=== PATIENT | male | born 1950 | race Caucasian/White ===

== ENCOUNTER 2018-07-18 08:36 | Observation (INO) | payer OTHER ==
[2018-07-18] MEDS ORDERED: PROPOFOL 20 ML (09:41)
[2018-07-18] MEDS ORDERED: LIDOCAINE 2% (SDV) 5 ML INJ (09:41)
[2018-07-18] MEDS ORDERED: SUCCINYLCHOLINE CHLORIDE 100 MG/5 ML SYG IV (09:41)
[2018-07-18] MEDS ORDERED: ROPIVACAINE 0.5 % 30 ML VIAL (09:41)
[2018-07-18] MEDS ORDERED: GLYCOPYRROLATE 0.4 MG INJ ×3 (09:41→12:26)
[2018-07-18] MEDS ORDERED: NEOSTIGMINE 3 MG/3 ML SYRINGE ×2 (09:41→12:26)
[2018-07-18] MEDS ORDERED: ROCURONIUM 50 MG INJ ×4 (09:41→13:24)
[2018-07-18 09:52] LABS: ADD MAN DIFF? NO
[2018-07-18 09:58] LABS: WHITE BLOOD COUNT 9.6 10^3/ul (4.8-10.8)
[2018-07-18 09:58] LABS: BASOPHIL # 0.1 10^3/ul (0.0-0.1); BASOPHILS % 0.5 % (0.0-2.0); EOSINOPHILS # 0.3 10^3/ul (0.0-0.5); EOSINOPHILS % 2.8 % (0.0-7.0); HEMATOCRIT 40.7 % (42.0-52.0); HEMOGLOBIN 12.9 g/dl (14.0-18.0); LYMPHOCYTES # 2.2 10^3/ul (0.8-2.9); LYMPHOCYTES % 23.2 % (15.0-51.0); MEAN CORPUSCULAR HEMOGLOBIN 27.1 pg (29.0-33.0); MEAN CORPUSCULAR HGB CONC 31.7 g/dl (32.0-37.0); MEAN CORPUSCULAR VOLUME 85.5 fl (82.0-101.0); MEAN PLATELET VOLUME 10.4 fl (7.4-10.4); MONOCYTE # 0.9 10^3/ul (0.3-0.9); MONOCYTES % 9.6 % (0.0-11.0); NEUTROPHIL # 6.1 10^3/ul (1.6-7.5); NEUTROPHILS % 63.6 % (39.0-77.0); PLATELET COUNT 246 10^3/UL (140-415); RED BLOOD COUNT 4.76 10^6/ul (4.70-6.10); RED CELL DISTRIBUTION WIDTH 12.7 % (11.5-14.5)
[2018-07-18] MEDS: LACTATED RINGER'S 1,000 ML IV (10:00)
[2018-07-18] MEDS ORDERED: POLYMYXIN/BACITRACIN 1L IRRIG (10:00)
[2018-07-18] MEDS ORDERED: POVIDONE IODINE 10% 28.4 GM OINT (10:00)
[2018-07-18 10:26] LABS: ALANINE AMINOTRANSFERASE 21 IU/L (13-69); ALBUMIN 3.8 g/dl (3.3-4.9); ALBUMIN/GLOBULIN RATIO 0.92; ALKALINE PHOSPHATASE 127 IU/L (42-121); ANION GAP 16 (8-16); ASPARTATE AMINO TRANSFERASE 18 IU/L (15-46); BILIRUBIN,INDIRECT 0.2 mg/dl (0-1.1); BILIRUBIN,TOTAL 0.2 mg/dl (0.2-1.3); BLOOD UREA NITROGEN 33 mg/dl (7-20); CALCIUM 9.2 mg/dl (8.4-10.2); CARBON DIOXIDE 20 mmol/L (21-31); CHLORIDE 113 mmol/L (97-110); CREATININE 1.87 mg/dl (0.61-1.24); GLUCOSE 123 mg/dl (70-220); SODIUM 144 mmol/L (135-144); TOTAL PROTEIN 7.9 g/dl (6.1-8.1)
[2018-07-18] MEDS: POLYMYXIN/BACITRACIN 1L IRRIG IRR (11:18)
[2018-07-18] MEDS ORDERED: PHENYLephrine (100 MCG/ML) 5ML SYG (13:16)
[2018-07-18] MEDS ORDERED: LABETALOL HCL 20MG INJ (15:07)
[2018-07-18] MEDS ORDERED: CEFAZOLIN 1 GM INJ (15:33)
[2018-07-18] MEDS ORDERED: ONDANSETRON 4 MG INJ (16:12)
[2018-07-18] MEDS: ROPIVACAINE 0.5 % 30 ML VIAL (16:17)
[2018-07-18] MEDS: CA CHLORIDE 10% 10 ML SYRINGE (16:17)
[2018-07-18] MEDS: THROMBIN 5000 UNIT VIAL (16:18)
[2018-07-18] MEDS ORDERED: ONDANSETRON 4 MG INJ IV ×2 (17:00)
[2018-07-18] MEDS ORDERED: DIPHENHYDRAMINE 25 MG CAP PO (17:00)
[2018-07-18] MEDS ORDERED: OXYCODONE/ACETAMINOPHEN (5/325) TAB PO ×2 (17:00)
[2018-07-18] MEDS ORDERED: BISACODYL 10 MG SUPP PR (17:00)
[2018-07-18] MEDS ORDERED: METOCLOPRAMIDE 10 MG INJ IV (17:00)
[2018-07-18] MEDS ORDERED: EPHEDrine SULFATE 50 MG/5 ML SYG IV (17:00)
[2018-07-18] MEDS ORDERED: CEFAZOLIN 1 GM INJ IV (17:00)
[2018-07-18] MEDS ORDERED: FENTAnyl 50 MCG/ML VIAL IV ×2 (17:00)
[2018-07-18] MEDS ORDERED: DIPHENHYDRAMINE 50 MG INJ IV (17:00)
[2018-07-18] MEDS ORDERED: hydrALAzine 20 MG INJ IV (17:00)
[2018-07-18] MEDS ORDERED: MIDAZOLAM 1 MG/ML 2 ML INJ IV (17:00)
[2018-07-18] MEDS ORDERED: HYDROmorphONE 1 MG/5 ML IV SYRINGE IV ×3 (17:00)
[2018-07-18] MEDS: LABETALOL HCL 20MG INJ IV (17:17)
[2018-07-18] MEDS: FENTAnyl 50 MCG/ML VIAL IV (17:18)
[2018-07-18] MEDS: HYDROmorphONE 0.2 MG/ML PCA IV (18:07)
[2018-07-18] MEDS: SOD CHLORIDE 0.9% 1,000 ML IV (18:08)
[2018-07-18] MEDS: CEFAZOLIN 1 GM/50 ML (PMX) 50 ML IVPB (18:16)
[2018-07-18] MEDS: MEPERIDINE 25 MG INJ IV (18:25)
[2018-07-18] MEDS: morphine 10 MG INJ IV (18:26)
[2018-07-18] MEDS: SENNA/DOCUSATE NA (8.6MG/50MG) TAB PO (21:00)
[2018-07-19] MEDS: SOD CHLORIDE 0.9% 1,000 ML IV ×4 (02:39→20:47)
[2018-07-19] MEDS: CEFAZOLIN 1 GM/50 ML (PMX) 50 ML IVPB ×3 (02:58→17:03)
[2018-07-19] MEDS: HYDROmorphONE 0.2 MG/ML PCA IV (08:13)
[2018-07-19] MEDS: SENNA/DOCUSATE NA (8.6MG/50MG) TAB PO ×2 (08:44→20:46)
[2018-07-19] MEDS: LACTATED RINGER'S 1,000 ML IV (10:00)
[2018-07-19] MEDS ORDERED: DIAZEPAM 5 MG TAB PO (14:00)
[2018-07-19] MEDS: OXYCODONE/ACETAMINOPHEN (5/325) TAB PO ×2 (14:03→20:46)
[2018-07-19] MEDS: RIVAROXABAN 10 MG TABLET PO (17:03)
[2018-07-20] MEDS: CEFAZOLIN 1 GM/50 ML (PMX) 50 ML IVPB ×2 (01:43→10:34)
[2018-07-20] MEDS: SOD CHLORIDE 0.9% 1,000 ML IV (08:39)
[2018-07-20] MEDS: SENNA/DOCUSATE NA (8.6MG/50MG) TAB PO (09:22)
[2018-07-20] MEDS: LACTATED RINGER'S 1,000 ML IV (10:00)
[2018-07-20] MEDS: HYDROmorphONE 0.2 MG/ML PCA IV (10:28)
[2018-07-20] MEDS: OXYCODONE/ACETAMINOPHEN (5/325) TAB PO ×2 (13:24→17:08)
[2018-07-20] MEDS ORDERED: MAGNESIUM HYDROXIDE 30ML CUP PO (21:00)
== END 2018-07-20 18:20 | disposition home or self-care (01) ==
LOC: SDS 08:36 → REC 16:44 → MS1 20:00
DX: T84.84XA Pain due to internal orthopedic prosthetic devices, implants and grafts, initial encounter (principal); Y79.3 Surgical instruments, materials and orthopedic devices (including sutures) associated with adverse incidents; Y83.8 Other surgical procedures as the cause of abnormal reaction of the patient, or of later complication, without mention of misadventure at the time of the procedure; M65.872 Other synovitis and tenosynovitis, left ankle and foot; S86.312S Strain of muscle(s) and tendon(s) of peroneal muscle group at lower leg level, left leg, sequela; X58.XXXS Exposure to other specified factors, sequela
CPT/HCPCS: 28200; 73610; 80053; 82962; 85025; 86999; 97116; 97162; 97530